=== PATIENT | male | born 2005 | race Caucasian/White ===

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

== ENCOUNTER 2024-07-30 13:37 | Emergency (ER) | payer MEDICAID ==
[~2024-07-30] VITALS: Ht 160 cm; Wt 74.0 kg
[2024-07-30 13:52] VITALS: BP 130/90; PULSE 91; RESP 16; TEMP 98.3; O2SAT 97
[2024-07-30] MEDS ORDERED: IBUP-2213 PO (14:59)
[2024-07-30] MEDS ORDERED: ACET500T99 PO (14:59)
[2024-07-30] MEDS: ACETAMINOPHEN EXTRA STRENGTH 500 MG TAB PO ONE (15:36)
[2024-07-30] MEDS: IBUPROFEN 600 MG TAB PO ONE (15:37)
== END 2024-07-30 16:00 | disposition home or self-care (01) ==
LOC: MED 13:37
DX: S62.304G Unspecified fracture of fourth metacarpal bone, right hand, subsequent encounter for fracture with delayed healing (principal); S62.306A Unspecified fracture of fifth metacarpal bone, right hand, initial encounter for closed fracture; Z79.899 Other long term (current) drug therapy; W22.8XXA Striking against or struck by other objects, initial encounter; Y92.89 Other specified places as the place of occurrence of the external cause; Y93.89 Activity, other specified; Y99.8 Other external cause status
CPT/HCPCS: 73130; 99283